=== PATIENT | female | born 1945 | race Caucasian/White ===

== ENCOUNTER 2018-08-30 07:40 | Observation (INO) ==
[2018-08-30] MEDS ORDERED: Ipratropium/Albuterol Neb 3 ML IH ONE ×3 (08:02→08:21)
[2018-08-30] MEDS ORDERED: methylPREDNISolone 125 MG/2 ML VIAL IVP ONE (08:21)
--- NOTE | 2018-08-30 08:30 | Emergency Department Note ---
Disposition Clinical Impression: COPD (chronic obstructive pulmonary disease) Qualifiers: COPD type: unspecified COPD Qualified Code(s): J44.9 - Chronic obstructive pulmonary disease, unspecified A-fib Qualifiers: Atrial fibrillation type: paroxysmal Qualified Code(s): I48.0 - Paroxysmal atrial fibrillation CHF exacerbation Qualifiers: Heart failure type: unspecified Qualified Code(s): I50.9 - Heart failure, unspecified Disposition: Admitted As Inpatient Condition: Fair Referrals: NONE,PCP [Non-Partnered Physician] - Forms: ED Satisfaction Letter Time of Disposition: 09:54 (admit) SOB HPI - General Chief Complaint: ED Upper Respiratory Infection Stated Complaint: cough, wheezing Time Seen by Provider: 08/30/18 08:10 Source: patient Mode of arrival: private vehicle Limitations: no limitations Nursing Notes Reviewed: Yes Vital Signs Reviewed: Yes - History of Present Illness Patient presents to the ED complaining of cough, wheezing and shortness of breath. Symptoms been going on for 2-3 weeks. She reports a productive cough with yellow sputum. Shortness of breath is only with activity, not at rest. He denies any chest pain or leg swelling. No rhinorrhea, nasal congestion or sore throat. She does report subjective fever and chills. She has recently completed a course of antibiotics for pneumonia but she does not recall the name or how recently she finished it. She has had a few chest x-rays according to her records over the past month that were tracking what appeared to be a left upper lobe pneumonia that was resolving with persistence of a lingular pneumonia seen as recently as August 24 on chest x-ray. She takes spiriva, Symbicort and also an albuterol rescue inhaler which she used this morning that did help some. She has a history of both COPD and asthma along with CHF, CAD, A. fib, diabetes and high blood pressure. - Related Data Home Medications Medication Instructions Recorded Confirmed Furosemide [Lasix] 20 mg PO DAILY 10/12/14 08/30/18 Insulin NPH Hum/Reg Insulin Hm 20 unit SQ BID PRN 10/12/14 08/30/18 [Novolin 70-30 100 Unit/ml Vial] Montelukast Sodium 10 mg PO HS 10/12/14 08/30/18 Potassium Chloride 10 meq PO BID 10/12/14 08/30/18 Diltiazem CD (24hr) [Cardizem CD] 180 mg PO DAILY 04/29/15 08/30/18 Tiotropium [place] [Spiriva 2.5 mg IH DAILY 04/29/15 08/30/18 Respimat] Fluticasone Propionate Nasal 1 spray NS BID 03/11/16 08/30/18 [Flonase] Gabapentin [Neurontin] 800 mg PO BID 03/11/16 08/30/18 Levothyroxine [Synthroid] 88 mcg PO DAILY 03/11/16 08/30/18 Cholecalciferol (Vitamin D3) 50,000 unit PO QWEEK 07/08/16 08/30/18 [Vitamin D3] Clopidogrel [Plavix] 75 mg PO DAILY 07/08/16 08/30/18 Albuterol Neb [Proventil Neb] 2.5 mg IH Q4HR PRN 08/30/18 08/30/18 Albuterol Sulfate [Albuterol 1 puff IH Q6HR PRN 08/30/18 08/30/18 Inhaler] Aspirin [Lo-Dose Aspirin EC] 81 mg PO DAILY 08/30/18 08/30/18 Atorvastatin [Lipitor] 40 mg PO HS 08/30/18 08/30/18 Bisacodyl [Women's Laxative] 5 mg PO DAILY 08/30/18 08/30/18 Budesonide/Formoterol 160/4.5 1 puff IH BIDR 08/30/18 08/30/18 [Symbicort 160/4.5] FLUoxetine HCl [PROzac] 10 mg PO DAILY 08/30/18 08/30/18 Meloxicam [Mobic] 15 mg PO DAILY 08/30/18 08/30/18 Omeprazole [PriLOSEC] 40 mg PO DAILY 08/30/18 08/30/18 Ranitidine HCl [Acid Recruitment Director] 150 mg PO BID 08/30/18 08/30/18 Previous Rx's Medication Instructions Recorded Atenolol [Tenormin] 25 mg PO BID #60 tablet 11/02/14 Docusate [Colace] 100 mg PO BID capsule 07/12/16 Ferrous Sulfate 325 mg PO BIDWM tablet 07/12/16 Allergies Allergy/AdvReac Type Severity Reaction Status Date / Time No Known Allergies Allergy Verified 08/30/18 07:40 Constitutional: Reports: fever (subjective), chills. Denies: weakness, weight change Eyes: Denies: eye pain, eye discharge, vision change ENT ED: Denies: ear pain, throat pain, dental pain, hearing loss, epistaxis, congestion, dysphagia Cardiovascular: Denies: chest pain, palpitations, dyspnea on exertion, edema, syncope Respiratory: Reports: as per HPI, cough, dyspnea, wheezes, sputum production. Denies: hemoptysis, stridor Gastrointestinal: Denies: abdominal pain, nausea, vomiting, diarrhea, constipation, hematemesis, melena, hematochezia Genitourinary: Denies: dysuria, frequency, hematuria, discharge Musculoskeletal: Denies: back pain, neck pain, arthralgia, myalgia Integumentary: Denies: rash, abrasion, lesions Neurological: Denies: headache, weakness, numbness, paresthesias, confusion, abnormal gait, vertigo Psychiatric: Denies: anxiety, depression, suicidal thoughts, homicidal thoughts, auditory hallucinations, visual hallucinations Endocrine: Denies: fatigue Hematological/Lymphatic: Denies: easy bleeding, easy bruising Allergic/Immunologic: Denies: facial swelling, urticaria Past Medical History - Past Medical History Medical history: Reports: arthritis, asthma, atrial fibrillation, cancer, CHF, COPD, coronary artery disease, CVA, diabetes, GERD, hyperlipidemia, hypertension, renal disease, thyroid disease, other Surgical history: Reports: cancer surgery (Tracheal), cataract, colectomy (PEG tube and removal), hip replacement (Right), sinus surgery, thyroidectomy, other (Bronchoscopy and biopsy, PEG tube and removal) Psychiatric history: Reports: anxiety, depression RESTAURANT DISTRICT MANAGER history: Reports: no RESTAURANT DISTRICT MANAGER history, bilateral tubal ligation - Social History Smoking Status: Former smoker Smokeless Tobacco Status: No Alcohol use: Reports: none Drug use: Reports: none Physical Exam - General Limitations: no limitations General appearance: alert, in no apparent distress - Head Head exam: atraumatic, normocephalic, normal inspection - Eye Eye exam: Present: normal appearance, PERRL, EOMI - ENT ENT exam: normal exam, normal oropharynx, mucous membranes moist, TM's normal bilaterally, normal external ear exam - Neck Neck exam: Present: normal inspection, full ROM, trachea midline. Absent: lymphadenopathy - Chest Chest inspection: Present: normal inspection, symmetric chest wall rise - Respiratory Respiratory exam: Present: wheezes (diffuse), prolonged expiratory phase - Cardiovascular Cardiovascular exam: Present: regular rate, normal rhythm, normal heart sounds - Abdominal Exam Abdominal exam: Present: soft, Non-Tender. Absent: tenderness, distention, guarding, rebound, rigidity - Extremities Exam Extremities exam: Present: normal inspection, full ROM, pedal edema (trace bilaterally at ankles). Absent: tenderness - Back Exam Back exam: Present: normal inspection, full ROM. Absent: tenderness - Neurological Exam Neurological exam: Present: alert, oriented X3 - Psychiatric Psychiatric exam: Present: normal affect, normal mood - Skin Skin exam: Present: warm, dry, intact, normal color Course Course Narrative: Patient presents to the ED with a few weeks of wheezing, productive cough and shortness of breath with activity with recent completion of antibiotics for a left upper lobe and lingular pneumonia. On arrival she is afebrile and hemodynamically stable but with an increased work of breathing and diffuse wheezing. Will give nebulizer treatments and steroids. Will obtain chest x- ray, EKG and lab work. - Reevaluation(s) Reevaluation #1: Per patient's pharmacy she was prescribed a course of prednisone on August 16 and Levaquin on August 17. Chest x-ray shows increasing pulmonary edema compared to prior with no mention of residual pneumonia. EKG shows A. fib with occasional PVCs at a rate of 131. Patient has been tachycardic anywhere from the 90s to 140s since arrival. She is currently in A. fib which appears to be paroxysmal according to her history and last EKG from 2016 showed an normal sinus rhythm. She has not yet taken any of her daily medications which includes 20 mg of Lasix and 180 of Cardizem. Lab work reveals a normal white count, normal troponin and normal lactic acid. BNP however is elevated at 994. Given a dose of IV Lasix in addition to a small bolus of IV Cardizem. Discussed with patient and family the need for admission for further treatment and there were in agreement. I spoken to the hospitalist on duty, Dr. Garcia, who has accepted the patient. Time: 09:53 Vital Signs Temperature 98.4 F 08/30/18 07:42 Pulse Rate 87 08/30/18 07:42 Respiratory Rate 20 08/30/18 07:42 Blood Pressure 127/97 08/30/18 07:42 O2 Sat by Pulse Oximetry 96 08/30/18 07:42 Temperature 98.4 F 08/30/18 07:42 Pulse Rate 121 08/30/18 09:37 Respiratory Rate 24 08/30/18 09:37 Blood Pressure 151/113 08/30/18 09:37 O2 Sat by Pulse Oximetry 96 08/30/18 09:37 Oxygen Delivery Oxygen Delivery Room Air Shortness of Breath/Dyspnea - Differential Diagnosis Likely: acute exacerbation of chronic obstructive airways disease, congestive heart failure, pneumonia - Medical Records Medical records reviewed: Yes I reviewed the patient's medical records. - Lab Data Lab results reviewed: Yes I reviewed the patient's lab results. Result diagrams: 08/30/18 08:38 08/30/18 08:38 Lab Results 08/30/18 08/30/18 08/30/18 Range/Units 08:38 08:38 08:38 WBC 11.0 (4.3-11.1) K/mcL RBC 4.76 (3.82-4.97) M/mcL Hgb 12.8 (11.5-15.4) g/dL Hct 39.6 (35.3-44.9) % MCV 83.2 (83.0-100.0) fL MCH 26.9 L (28.0-33.3) pg MCHC 32.3 (31.6-35.5) g/dL RDW 14.9 H (11.5-14.5) % Plt Count 265 (140-400) K/mcL MPV 10.0 (9.4-12.4) fL Immature Gran % 0.3 (0-4) % Seg Neutrophils % 74.4 % Lymphocytes % 13.3 % Monocytes % 11.0 % Eosinophils % 0.7 % Basophils % 0.3 % Neutrophils # 8.2 (1.6-8.9) K/mcL Lymphocytes # 1.5 (0.6-4.6) K/mcL Monocytes # 1.2 (0.0-1.3) K/mcL Eosinophils # 0.1 (0.0-0.6) K/mcL Basophils # 0.0 (0.0-0.2) K/mcL Sodium 139 (136-145) mEq/L Potassium 3.9 (3.5-5.1) mEq/L Chloride 104 (98-107) mEq/L Carbon Dioxide 27 (23-29) mEq/L BUN 11 (8-23) mg/dL Creatinine 0.89 (0.60-1.20) mg/dL Est GFR ( Amer) > 60 (> 60) Est GFR (Non-Af Amer) > 60 (> 60) BUN/Creatinine Ratio 12 (6-26) Glucose 133 H (70-105) mg/dL Calculated Osmolality 289 (280-300) Lactic Acid 1.1 (0.5-2.2) mmol/L Calcium 8.8 (8.6-10.3) mg/dL Troponin I < 0.03 (< 0.04) ng/mL B-Natriuretic Peptide (Less than 100) pg/mL 08/30/18 Range/Units 08:38 WBC (4.3-11.1) K/mcL RBC (3.82-4.97) M/mcL Hgb (11.5-15.4) g/dL Hct (35.3-44.9) % MCV (83.0-100.0) fL MCH (28.0-33.3) pg MCHC (31.6-35.5) g/dL RDW (11.5-14.5) % Plt Count (140-400) K/mcL MPV (9.4-12.4) fL Immature Gran % (0-4) % Seg Neutrophils % % Lymphocytes % % Monocytes % % Eosinophils % % Basophils % % Neutrophils # (1.6-8.9) K/mcL Lymphocytes # (0.6-4.6) K/mcL Monocytes # (0.0-1.3) K/mcL Eosinophils # (0.0-0.6) K/mcL Basophils # (0.0-0.2) K/mcL Sodium (136-145) mEq/L Potassium (3.5-5.1) mEq/L Chloride (98-107) mEq/L Carbon Dioxide (23-29) mEq/L BUN (8-23) mg/dL Creatinine (0.60-1.20) mg/dL Est GFR ( Amer) (> 60) Est GFR (Non-Af Amer) (> 60) BUN/Creatinine Ratio (6-26) Glucose (70-105) mg/dL Calculated Osmolality (280-300) Lactic Acid (0.5-2.2) mmol/L Calcium (8.6-10.3) mg/dL Troponin I (< 0.04) ng/mL B-Natriuretic Peptide 994 H (Less than 100) pg/mL - Radiology Data Radiology results reviewed: Yes I reviewed the patient's radiology results. ITS Impressions Chest X-Ray 08/30/18 08:22 IMPRESSION: 1. Increasing pulmonary edema. D/ : / 08/30/2018 09:01:29 Keny Chun MD / [facility] Interpreting Provider: Keny Chun MD - EKG Data EKG attestation: Yes I reviewed and interpreted this EKG. Rate: Reports: tachycardia Rhythm: Reports: A.Fib, PVC's [place]/QRS: Reports: normal Interpretation: Reports: no acute changes
[2018-08-30 08:52] LABS: Basophils % 0.3 %; Eosinophils # 0.1 K/mcL (0.0-0.6); Eosinophils % 0.7 %; Hematocrit 39.6 % (35.3-44.9); Hemoglobin 12.8 g/dL (11.5-15.4); Immature Granulocytes % 0.3 % (0-4); Lymphocytes # 1.5 K/mcL (0.6-4.6); Lymphocytes % 13.3 %; Mean Corpuscular HGB Conc 32.3 g/dL (31.6-35.5); Mean Corpuscular Hemoglobin 26.9 pg (28.0-33.3); Mean Corpuscular Volume 83.2 fL (83.0-100.0); Monocytes # 1.2 K/mcL (0.0-1.3); Neutrophils # 8.2 K/mcL (1.6-8.9); Platelet Count 265 K/mcL (140-400); Red Blood Count 4.76 M/mcL (3.82-4.97); Red Cell Distribution Width 14.9 % (11.5-14.5); Segmented Neutrophils % 74.4 %
[2018-08-30 09:07] LABS: BUN/Creatinine Ratio 12 (6-26); Blood Urea Nitrogen 11 mg/dL (8-23); Calcium 8.8 mg/dL (8.6-10.3); Carbon Dioxide 27 mEq/L (23-29); Chloride 104 mEq/L (98-107); Glucose 133 mg/dL (70-105); Osmolality,Calculated 289 (280-300); Potassium 3.9 mEq/L (3.5-5.1); Sodium 139 mEq/L (136-145); eGFR For African Americans > 60 (> 60); eGFR For Non-African Americans > 60 (> 60)
[2018-08-30 09:08] LABS: Troponin I < 0.03 ng/mL (< 0.04)
[2018-08-30] MEDS ORDERED: Furosemide 20 MG/2 ML VIAL IVP ONE (09:42)
[2018-08-30] MEDS ORDERED: Naloxone 0.4 MG/ML INJ IVP PRN ×2 (09:57→12:25)
[2018-08-30] MEDS ORDERED: *HR* Dextrose 50 % in Water (Syg) 50 ML SYRINGE IVP PRN ×2 (10:08→12:25)
[2018-08-30] MEDS ORDERED: Dextrose Gel 15 GM/37.5 ML TUBE PO PRN ×4 (10:08→12:25)
[2018-08-30] MEDS ORDERED: D5% in Water 1,000 ML IVC PRN ×2 (10:08→12:25)
[2018-08-30] MEDS ORDERED: Insulin LISPRO 300 UNITS/3 ML VIAL SQ SCH ×2 (11:30→21:00)
[2018-08-30] MEDS ORDERED: Diltiazem CD (24hr) 180 MG CAPSULE PO SCH (11:45)
[2018-08-30] MEDS ORDERED: Insulin NPH/REG 70/30 100 UNIT/ML (x5UNIT) SQ PRN (12:25)
[2018-08-30] MEDS ORDERED: Albuterol 2.5 MG/3 ML NEBULIZER IH PRN (12:25)
--- NOTE | 2018-08-30 12:38 | Electrocardiograph Report ---
[place] [id number] Test Date: 2018-08-30 Pat Name: Palak Kline Department: EDP-12 Room: [facility] Gender: F Upper Cutter Machine: : 1945 Requested By: Haylee Diaz Order Number: [id number] Reading MD: Radha Norris Measurements Intervals [place] Rate: 131 P: ME: QRS: -69 QRSD: 93 T: -17 QT: 340 QTc: 465 Interpretive Statements Atrial fibrillation/flutter Inferior infarct, age indeterminate Electronically Signed On 08-30-2018 12:37:21 EDT by Radha Norris
[2018-08-30] MEDS: Budesonide/Formoterol 160/4.5 1 PUFF INH IH SCH ×2 (12:52→21:50)
[2018-08-30] MEDS: FLUoxetine HCl 10 MG CAPSULE PO SCH (14:03)
[2018-08-30] MEDS: Aspirin Enteric Coated 81 MG Tablet PO SCH (14:03)
[2018-08-30] MEDS ORDERED: *HR* Metoprolol 5 MG/5 ML VIAL IVP ONE (14:14)
[2018-08-30] MEDS ORDERED: *HR* Digoxin 0.5 MG/2 ML AMPUL IVP ONE (14:14)
[2018-08-30] MEDS: Insulin LISPRO 300 UNITS/3 ML VIAL SQ SCH ×2 (16:45→21:22)
[2018-08-30] MEDS: Gabapentin 400 MG CAPSULE PO SCH (21:22)
[2018-08-31] MEDS: Aspirin Enteric Coated 81 MG Tablet PO SCH (08:08)
[2018-08-31] MEDS: Diltiazem CD (24hr) 180 MG CAPSULE PO SCH (08:09)
[2018-08-31] MEDS: Famotidine 20 MG TABLET PO SCH (08:09)
[2018-08-31] MEDS: Gabapentin 400 MG CAPSULE PO SCH ×2 (08:09→21:41)
[2018-08-31] MEDS: FLUoxetine HCl 10 MG CAPSULE PO SCH (08:10)
[2018-08-31] MEDS: Insulin LISPRO 300 UNITS/3 ML VIAL SQ SCH ×4 (08:11→21:41)
[2018-08-31] MEDS: Fluticasone Propionate Nasal 50 MCG/SPRAY BOTTLE NS SCH ×3 (08:11→21:44)
[2018-08-31] MEDS ORDERED: Diltiazem CD (24hr) 120 MG CAPSULE PO SCH (09:00)
--- NOTE | 2018-08-31 09:17 | Internal Med History&Physical ---
Date of Encounter: 08/31/18 Time of Encounter: 08:50 Assessment and Plan (1) Diastolic CHF Current visit: No Status: Chronic She will be given IV Lasix and higher dose beta fidelina. Labs will be done in a.m. Qualifiers: Qualified Code(s): I50.32 - Chronic diastolic (congestive) heart failure (2) A-fib Current visit: Yes Status: Chronic Rapid ventricular response noted in emergency room. Additional beta fidelina will be given. Lanoxin was given to slow ventricular rate which has now returned to acceptable range. Continue aspirin and Plavix. Recommend consideration for OAC Qualifiers: Atrial fibrillation type: paroxysmal Qualified Code(s): I48.0 - Paroxysmal atrial fibrillation (3) Hypothyroidism Current visit: Yes Status: Chronic Check TSH in a.m. Qualifiers: Hypothyroidism type: unspecified Qualified Code(s): E03.9 - Hypothyroidism, unspecified (4) Hypertension Current visit: No Status: Chronic Increase atenolol. Continue diltiazem. Qualifiers: Hypertension type: essential hypertension Qualified Code(s): I10 - Essentia l (primary) hypertension Internal Medicine - H&P: HPI Chief complaint: Dyspnea Admitted From: Emergency Dept Plans for Post Hospital Care: Home History of present illness: Ms. Kline is a 73 year old female who came to emergency room stating she had dyspnea onset approximately 2 weeks earlier. She states she was diagnosed with pneumonia and given antibiotics and other interventions. She initially improved but then her dyspnea worsened. She reports cough productive of yellow sputum and sensation of chills. She came to emergency room morning of admission was felt to have exacerbations of COPD and CHF. She was admitted to [facility] floor for ongoing care needs. Cardiovascular history is significant for hypertension and chronic atrial fibrillation. She denies MT DVT or pulmonary embolus. Echocardiogram on 07/09/2016 showed LVEF of 60%. No significant valvular abnormalities were seen. The interventricular septum and posterior wall thickness measurements were 1.30 and 1.00 cm respectively. There was LAE at 4.20 cm. E/A ratio was 0.9. She is on aspirin and Plavix. She does not know why she is not taking oral anticoagulant. Respiratory history significant for having smoked from age [age] never up to one pack per day. She claims she has been diagnosed with COPD and asthma but does not recall having PFTs. She does not use home oxygen. She states her dyspnea has improved at the present time but she is not back to her baseline. Past Med Surg Social Fam HX - Past Medical History Medical history: arthritis, asthma, atrial fibrillation, cancer, CHF, COPD, coronary artery disease, CVA, diabetes, GERD, hyperlipidemia, hypertension, renal disease, thyroid disease, other Additional medical history: hiatial hernia,memory loss, Psychiatric history: anxiety, depression - Past Surgical History Surgical History: cancer surgery (Tracheal), cataract, colectomy (PEG tube and removal), hip replacement (Right), sinus surgery, thyroidectomy, other (Bronchoscopy and biopsy, PEG tube and removal) Additional surgical history: peg tube insertion,tubal,nasal,bowl resection - Social History Smoking Status: Former smoker Smokeless Tobacco Status: No Alcohol use: none Drug use: none - Family History Mother Living Status: Hx Family Cardiac Disorders: Yes (HTN) Hx Family Endocrine Disorder: Yes (DM) Brother Adopted: No Family Member Ethnicity: Non- Living Status: Hx Family Cardiac Disorders: Yes Internal Medicine - H&P: Meds Furosemide [Lasix] 20 mg PO DAILY 10/12/14 [History] Insulin NPH Hum/Reg Insulin Hm [Novolin 70-30 100 Unit/ml Vial] 20 unit SQ BID PRN 10/12/14 [History] Montelukast Sodium 10 mg PO HS 10/12/14 [History] Potassium Chloride 10 meq PO BID 10/12/14 [History] Atenolol [Tenormin] 25 mg PO BID #60 tablet 11/02/14 [Rx] Diltiazem CD (24hr) [Cardizem CD] 180 mg PO DAILY 04/29/15 [History] Tiotropium [place] [Spiriva Respimat] 2.5 mg IH DAILY 04/29/15 [History] Fluticasone Propionate Nasal [Flonase] 1 spray NS BID 03/11/16 [History] Gabapentin [Neurontin] 800 mg PO BID 03/11/16 [History] Levothyroxine [Synthroid] 88 mcg PO DAILY 03/11/16 [History] Cholecalciferol (Vitamin D3) [Vitamin D3] 50,000 unit PO QWEEK 07/08/16 [History] Clopidogrel [Plavix] 75 mg PO DAILY 07/08/16 [History] Docusate [Colace] 100 mg PO BID capsule 07/12/16 [Rx] Ferrous Sulfate 325 mg PO BIDWM tablet 07/12/16 [Rx] Albuterol Neb [Proventil Neb] 2.5 mg IH Q4HR PRN 08/30/18 [History] Albuterol Sulfate [Albuterol Inhaler] 1 puff IH Q6HR PRN 08/30/18 [History] Aspirin [Lo-Dose Aspirin EC] 81 mg PO DAILY 08/30/18 [History] Atorvastatin [Lipitor] 40 mg PO HS 08/30/18 [History] Bisacodyl [Women's Laxative] 5 mg PO DAILY 08/30/18 [History] Budesonide/Formoterol 160/4.5 [Symbicort 160/4.5] 1 puff IH BIDR 08/30/18 [History] FLUoxetine HCl [PROzac] 10 mg PO DAILY 08/30/18 [History] Meloxicam [Mobic] 15 mg PO DAILY 08/30/18 [History] Omeprazole [PriLOSEC] 40 mg PO DAILY 08/30/18 [History] Ranitidine HCl [Acid Food Manager] 150 mg PO BID 08/30/18 [History] Allergy/AdvReac Type Severity Reaction Status Date / Time No Known Allergies Allergy Verified 08/30/18 07:40 All Systems PM: A 10-system review of systems was performed and is negative for pertinent findings except as documented above in the HPI. Review of systems: Gen.: She states her weight has been stable for several months Cardiovascular: As per history of present illness Respiratory: As per history of present illness GI: She states she has dysphagia and follows with Dr. Rodriguez at [facility] with anticipated esophageal dilatation procedure in the near future. Available records show she has history of colon cancer and had segmental resection several years ago requiring temporary colostomy which has been reversed. She has GERD diagnosis. She denies other disorders of her liver gallbladder or exocrine pancreas : She denies hematuria dysuria or kidney stones Neurologic: She reports a CVA 1994 left her with slight left arm and leg weakness. She has diabetic peripheral neuropathy. She denies other large distribution strokes or seizures Endocrine: She was diagnosed with DM 2 more than 30 years ago. 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 She states she is cancer free at the present time. She has history of anemia but denies other blood disorders. Psychiatric: She has anxiety and depression. She denies other mental health issues. [place] skeletal: She had right hip fracture with repair 2011. She denies other bone joint or muscle disorders. - Constitutional Vitals: Temp Pulse Resp BP Pulse Ox 97.7 F 93 16 134/89 93 08/31/18 06:58 08/31/18 06:58 08/31/18 06:58 08/31/18 06:58 08/31/18 06:58 Exam: Gen.: She is a well-developed well-nourished female resting comfortably in bed who appears slightly dyspneic HEENT: Head is atraumatic and normocephalic. Eyes: EOMI. There is no scleral icterus. Mouth: Mucosa is moist. Neck: Supple and nontender. There is no thyromegaly or adenopathy noted. Heart: Irregularly irregular without murmurs or gallops Lungs: She has prolonged expiratory phase and mild diffuse wheezing. No inspiratory crackles are heard. Abdomen: She has a well-healed midline abdominal scar. No masses or guarding are noted. Extremities: She has mild DJD changes of her hands. There is no cyanosis edema or clubbing noted. Dorsalis pedis and posterior tibial pulses are trace pal pable bilaterally. Neurologic: Mental status: She is talkative and a fair to good historian. Cranial nerves: Smile is symmetric. Forehead wrinkles bilaterally. Tongue protrudes midline. EOMI. Motor: There is no pronator drift. Cerebellar: Finger to nose is intact bilaterally. Skin: Warm and dry Internal Med - H&P Results - Labs CBC & Chem 7: 08/30/18 08:38 08/30/18 08:38 - Impressions ITS Impressions Chest X-Ray 08/30/18 08:22 IMPRESSION: 1. Increasing pulmonary edema. D/ / 08/30/2018 09:01:29 Keny Chun MD / [facility] Interpreting Provider: Keny Chun MD - VTE Reasons for not Prescribing Prophylaxis: Treatment not Indicated - Low risk for VTE
[2018-08-31] MEDS: Tiotropium 18 MCG inhalation IH SCH (09:22)
[2018-08-31] MEDS: Budesonide/Formoterol 160/4.5 1 PUFF INH IH SCH ×2 (09:22→22:21)
[2018-08-31] MEDS ORDERED: Albuterol 2.5 MG/3 ML NEBULIZER IH PRN (09:43)
[2018-08-31] MEDS ORDERED: *HR* Digoxin 0.25 MG TABLET PO ONE (09:45)
[2018-08-31] MEDS: Furosemide 40 MG/4 ML VIAL IVP SCH (11:42)
[2018-09-01 07:05] LABS: Thyroid Stimulating Hormone 4.971 mcIU/mL (0.340-5.600)
[2018-09-01 07:15] VITALS: BP 133/78
[2018-09-01] MEDS: Insulin LISPRO 300 UNITS/3 ML VIAL SQ SCH (07:54)
--- NOTE | 2018-09-01 08:09 | Discharge Summary ---
- NOTES TO OUTPATIENT PROVIDER Notes to Outpatient Provider: Recommend BMP to be drawn in 1 week given home diuretic dose increased. Consider full anticoagulation for atrial fibrillation. Date of Encounter: 09/01/18 Time of Encounter: 08:06 - Discharge Diagnosis (1) Acute on chronic congestive heart failure with left ventricular diastolic dysfunction Priority: Primary Status: Resolved Comments: Resolved exacerbation. Cardiopulmonary status near baseline. BNP improved from 994 to 330. EF 60% by remote TTE. Patient will be discharged home with increased furosemide dose. Daily weights along with 2L fluid restriction and 2g sodium restriction provided. She is to call PCP with 2lb/d or 5lb/w weight gain. (2) Atrial fibrillation with rapid ventricular response Priority: Secondary Status: Resolved Comments: Patient self-converted to sinus rhythm while admitted. HR averaging in low 60s on increased beta-fidelina regimen. The risks and benefits of full anticoagulation discussed with patient. She will discuss further with her PCP. BMP recommended in 1 week. (3) COPD (chronic obstructive pulmonary disease) Priority: Secondary Status: Chronic Comments: COPD appears near baseline with scattered wheeze on exam. O2 sats mid 90s on RA. Pt states that she feels near baseline. Will continue prior outpatient management and have pt follow-up with PCP next week. Qualifiers: COPD type: unspecified COPD Qualified Code(s): J44.9 - Chronic obstructive pulmonary disease, unspecified (4) Type II diabetes mellitus Priority: Secondary Status: Chronic Comments: Stable and near baseline. Will continue home regimen. Qualifiers: Diabetes mellitus filler leaf cutter long insulin use: with filler leaf cutter long use Diabetes mellitus complication status: without complication Qualified Code(s): E11.9 - Type 2 diabetes mellitus without complications; Z79.4 - long term care pharmacist (current) use of insulin Hospital course: Ms. Kline is a 73 year old female with known diastolic CHF, paroxysmal atrial fibrillation and COPD that presented to ED with 2 week history of increased cough, shortness of breath and wheeze despite home steroid and FQ course. CXR performed revealed considerable pulmonary edema. BNP elevated to 994. Patient was also in atrial fibrillation with RVR. She was admitted and diuresed with IV lasix. Rhythm self-converted to a NSR. Home beta-fidelina and diuretic were increased. Patient was tolerating a diabetic diet and ambulatory, with an oxygen saturation in the mid 90s at time of discharge. Fluid/sodium restrictions with daily weights were discussed. She will discuss full anti-coagulation with her PCP. Discharge discussed with: family - Time Spent with Patient Total time spent providing and/or coordinating discharge services: Time spent: Greater than 30 minutes - Discharge Medications Prescriptions: New Diltiazem CD (24hr) [Cardizem CD] 180 mg PO DAILY cap.er.24h Furosemide [Lasix] 40 mg PO DAILY #30 tablet Atenolol [Tenormin] 50 mg PO BID #60 tablet Continued Diltiazem CD (24hr) [Cardizem CD] 180 mg PO DAILY Tiotropium [place] [Spiriva Respimat] 2.5 mg IH DAILY Clopidogrel [Plavix] 75 mg PO DAILY Cholecalciferol (Vitamin D3) [Vitamin D3] 50,000 unit PO QWEEK Ferrous Sulfate 325 mg PO BIDWM tablet Docusate [Colace] 100 mg PO BID capsule Insulin NPH Hum/Reg Insulin Hm [Novolin 70-30 100 Unit/ml Vial] 20 unit SQ BID PRN PRN Reason: BG >150 Potassium Chloride 10 meq PO BID Montelukast Sodium 10 mg PO HS Fluticasone Propionate Nasal [Flonase] 1 spray NS BID Levothyroxine [Synthroid] 88 mcg PO DAILY Gabapentin [Neurontin] 800 mg PO BID Omeprazole [PriLOSEC] 40 mg PO DAILY Budesonide/Formoterol 160/4.5 [Symbicort 160/4.5] 1 puff IH BIDR Meloxicam [Mobic] 15 mg PO DAILY Albuterol Neb [Proventil Neb] 2.5 mg IH Q4HR PRN PRN Reason: Shortness Of Breath Ranitidine HCl [Acid Partner Marketing Intern] 150 mg PO BID Albuterol Sulfate [Albuterol Inhaler] 1 puff IH Q6HR PRN PRN Reason: Shortness Of Breath Aspirin [Lo-Dose Aspirin EC] 81 mg PO DAILY FLUoxetine HCl [Prozac] 10 mg PO DAILY Bisacodyl [Women's Laxative] 5 mg PO DAILY Atorvastatin [Lipitor] 40 mg PO HS Discontinued Atenolol [Tenormin] 25 mg PO BID #60 tablet Furosemide [Lasix] 20 mg PO DAILY Home Medications: Insulin NPH Hum/Reg Insulin Hm [Novolin 70-30 100 Unit/ml Vial] 20 unit SQ BID PRN 10/12/14 [History] Montelukast Sodium 10 mg PO HS 10/12/14 [History] Potassium Chloride 10 meq PO BID 10/12/14 [History] Diltiazem CD (24hr) [Cardizem CD] 180 mg PO DAILY 04/29/15 [History] Tiotropium [place] [Spiriva Respimat] 2.5 mg IH DAILY 04/29/15 [History] Fluticasone Propionate Nasal [Flonase] 1 spray NS BID 03/11/16 [History] Gabapentin [Neurontin] 800 mg PO BID 03/11/16 [History] Levothyroxine [Synthroid] 88 mcg PO DAILY 03/11/16 [History] Cholecalciferol (Vitamin D3) [Vitamin D3] 50,000 unit PO QWEEK 07/08/16 [History] Clopidogrel [Plavix] 75 mg PO DAILY 07/08/16 [History] Docusate [Colace] 100 mg PO BID capsule 07/12/16 [Rx] Ferrous Sulfate 325 mg PO BIDWM tablet 07/12/16 [Rx] Albuterol Neb [Proventil Neb] 2.5 mg IH Q4HR PRN 08/30/18 [History] Albuterol Sulfate [Albuterol Inhaler] 1 puff IH Q6HR PRN 08/30/18 [History] Aspirin [Lo-Dose Aspirin EC] 81 mg PO DAILY 08/30/18 [History] Atorvastatin [Lipitor] 40 mg PO HS 08/30/18 [History] Bisacodyl [Women's Laxative] 5 mg PO DAILY 08/30/18 [History] Budesonide/Formoterol 160/4.5 [Symbicort 160/4.5] 1 puff IH BIDR 08/30/18 [History] FLUoxetine HCl [Prozac] 10 mg PO DAILY 08/30/18 [History] Meloxicam [Mobic] 15 mg PO DAILY 08/30/18 [History] Omeprazole [PriLOSEC] 40 mg PO DAILY 08/30/18 [History] Ranitidine HCl [Acid Partner Marketing Intern] 150 mg PO BID 08/30/18 [History] Atenolol [Tenormin] 50 mg PO BID #60 tablet 09/01/18 [Rx] Diltiazem CD (24hr) [Cardizem CD] 180 mg PO DAILY cap.er.24h 09/01/18 [Rx] Furosemide [Lasix] 40 mg PO DAILY #30 tablet 09/01/18 [Rx] Allergies/Adverse Reactions: Allergy/AdvReac Type Severity Reaction Status Date / Time No Known Allergies Allergy Verified 08/30/18 07:40 Date of admission: 08/30/18 11:46 Primary care physician: Elly Laguna Consults: 08/30/18 13:03 Consult to Printmaker [CONS] Routine Reason for SW Consult: Discharge planning. Pt may have services from [facility]. Discharging clinician: Marcos Boone Anticipated date of discharge: 09/01/18 - Constitutional Vitals: Temp Pulse Resp BP Pulse Ox 97.4 F L 60 16 133/78 96 09/01/18 07:12 09/01/18 07:12 09/01/18 07:12 09/01/18 07:12 09/01/18 07:12 Exam: Gen: Lying in bed, NAD HEENT: NC, AT Neck: Trachea midline, no mass Pulm: No respiratory distress, scattered expiratory wheeze throughout with good air movement, no crackles CV: Normal S1 and S2, RRR Abdomen: Soft, ND, NT Ext: No C/C/E Neuro: No appreciable motor/sensor deficits Skin: Warm and dry, no rash Psych: A&Ox3 - Patient Status Disposition: Home, Self-Care Condition: Fair Functional capacity at discharge: independent ambulation Overall status at discharge: patient is progressing back to baseline - Discharge Instructions Instructions: Heart Failure (DC), Atrial Fibrillation (DC), Hypothyroidism (DC), Chronic Obstructive Pulmonary Disease (DC) Follow Up With: Elly Laguna CNP [Primary Care Provider] - 09/18/18 4:45 pm - Diet and Activity Activity: as per physical therapy Diet: advance to your usual diet - VTE Reasons for not Prescribing Prophylaxis: Treatment not Indicated - Low risk for VTE
[2018-09-01] MEDS: Gabapentin 400 MG CAPSULE PO SCH (08:11)
[2018-09-01] MEDS: Famotidine 20 MG TABLET PO SCH (08:12)
[2018-09-01] MEDS: Aspirin Enteric Coated 81 MG Tablet PO SCH (08:12)
[2018-09-01] MEDS: Diltiazem CD (24hr) 180 MG CAPSULE PO SCH (08:12)
[2018-09-01] MEDS: Furosemide 40 MG/4 ML VIAL IVP SCH (08:12)
[2018-09-01] MEDS: Fluticasone Propionate Nasal 50 MCG/SPRAY BOTTLE NS SCH (08:12)
[2018-09-01] MEDS: FLUoxetine HCl 10 MG CAPSULE PO SCH (08:12)
[2018-09-01] MEDS ORDERED: *HR* Dextrose 50 % in Water (Vial) 50 ML VIAL IVP PRN (08:30)
[2018-09-01] MEDS: Budesonide/Formoterol 160/4.5 1 PUFF INH IH SCH (09:23)
[2018-09-01] MEDS: Tiotropium 18 MCG inhalation IH SCH (09:23)
== END 2018-09-01 09:00 | disposition home or self-care (01) ==
LOC: EMEROOPIK 07:40 → INPPIK 07:40
PROVIDERS: ADMIT Internal Medicine; ATTEND Internal Medicine

== ENCOUNTER 2018-09-30 12:22 | Inpatient (IN) ==
[2018-09-30] MEDS ORDERED: methylPREDNISolone 125 MG/2 ML VIAL IVP ONE ×2 (13:01→15:14)
[2018-09-30] MEDS ORDERED: Ipratropium/Albuterol Neb 3 ML IH ONE (13:01)
--- NOTE | 2018-09-30 13:04 | Emergency Department Note ---
Disposition Clinical Impression: Acute exacerbation of chronic obstructive airways disease, Hypoxia Disposition: Admitted As Inpatient Condition: Fair Referrals: Garth Lee, DEEP FAT FRY COOK [Primary Care Provider] - Forms: ED Satisfaction Letter Time of Disposition: 14:17 SOB HPI - General Chief Complaint: ED Shortness of Breath/Dyspnea Stated Complaint: SHORTNESS OF BREATH WORSE 2 DAYS Time Seen by Provider: 09/30/18 12:56 Source: patient Mode of arrival: private vehicle Limitations: no limitations Nursing Notes Reviewed: Yes Vital Signs Reviewed: Yes - History of Present Illness Pt Subjective Complaint: shortness of breath Onset (ago): day(s) (Several days) Severity: severe Consistency/Duration: constant, gradually worsening Improves with: nothing (Even her home aerosol treatments did not help.) Worsens with: exertion Known history of: COPD, congestive heart failure Associated symptoms: Reports: cough, wheezing, sputum production Treatment prior to arrival: bronchodilator Cough present: Yes Cough Description: Productive Cough Frequency: Persistent Sputum production: Yes Sputum Amount: Moderate Sputum Color: Yellow, Green, Blood Streaked - Related Data Home oxygen amount: none Home Medications Medication Instructions Recorded Confirmed Insulin NPH Hum/Reg Insulin Hm 20 unit SQ BID PRN 10/12/14 09/30/18 [Novolin 70-30 100 Unit/ml Vial] Montelukast Sodium 10 mg PO HS 10/12/14 09/30/18 Potassium Chloride 10 meq PO BID 10/12/14 09/30/18 Tiotropium [place] [Spiriva 2.5 mg IH DAILY 04/29/15 09/30/18 Respimat] Fluticasone Propionate Nasal 1 spray NS BID 03/11/16 09/30/18 [Flonase] Gabapentin [Neurontin] 800 mg PO BID 03/11/16 09/30/18 Levothyroxine [Synthroid] 88 mcg PO DAILY 03/11/16 09/30/18 Cholecalciferol (Vitamin D3) 50,000 unit PO QWEEK 07/08/16 09/30/18 [Vitamin D3] Clopidogrel [Plavix] 75 mg PO DAILY 07/08/16 09/30/18 Albuterol Neb [Proventil Neb] 2.5 mg IH Q4HR PRN 08/30/18 09/30/18 Albuterol Sulfate [Proventil 1 puff IH Q6HR PRN 08/30/18 09/30/18 Inhaler] Aspirin [Lo-Dose Aspirin EC] 81 mg PO DAILY 08/30/18 09/30/18 Atorvastatin [Lipitor] 40 mg PO HS 08/30/18 09/30/18 Bisacodyl [Women's Laxative] 5 mg PO DAILY 08/30/18 09/30/18 Budesonide/Formoterol 160/4.5 1 puff IH BIDR 08/30/18 09/30/18 [Symbicort 160/4.5] FLUoxetine HCl [Prozac] 10 mg PO DAILY 08/30/18 09/30/18 Meloxicam [Mobic] 15 mg PO DAILY 08/30/18 09/30/18 Omeprazole [PriLOSEC] 40 mg PO DAILY 08/30/18 09/30/18 Ranitidine HCl [Acid Bolt Sorter] 150 mg PO BID 08/30/18 09/30/18 Previous Rx's Medication Instructions Recorded Docusate [Colace] 100 mg PO BID capsule 07/12/16 Ferrous Sulfate 325 mg PO BIDWM tablet 07/12/16 Atenolol [Tenormin] 50 mg PO BID #60 tablet 09/01/18 Diltiazem CD (24hr) [Cardizem CD] 180 mg PO DAILY cap.er.24h 09/01/18 Allergies Allergy/AdvReac Type Severity Reaction Status Date / Time No Known Allergies Allergy Verified 08/30/18 07:40 All systems ED: reviewed and negative except as stated. Constitutional: Denies: fever, chills ENT ED: Denies: ear pain, throat pain, congestion Cardiovascular: Reports: dyspnea on exertion. Denies: chest pain, palpitations, edema Respiratory: Reports: cough, dyspnea, wheezes Gastrointestinal: Denies: abdominal pain, nausea, vomiting, diarrhea Integumentary: Denies: rash Neurological: Denies: headache Past Medical History - Past Medical History Attestation: Yes The following information was validated with the patient. Source: patient, old records reviewed, nursing notes reviewed Medical history: Reports: arthritis, asthma, atrial fibrillation, cancer, CHF, COPD, coronary artery disease, CVA, diabetes, GERD, hyperlipidemia, hypertension, renal disease, thyroid disease, other Surgical history: Reports: cancer surgery (Tracheal), cataract, colectomy (PEG tube and removal), hip replacement (Right), sinus surgery, thyroidectomy, other (Bronchoscopy and biopsy, PEG tube and removal) Psychiatric history: Reports: anxiety, depression MD PHYSICIAN DERMATOLOGIST history: Reports: no MD PHYSICIAN DERMATOLOGIST history, bilateral tubal ligation - Social History Smoking Status: Former smoker Smokeless Tobacco Status: No Alcohol use: Reports: none Drug use: Reports: none Physical Exam - General Limitations: no limitations General appearance: alert, other (Frequent cough and audible wheezing) - Head Head exam: atraumatic, normocephalic, normal inspection - Eye Eye exam: Present: normal appearance, PERRL, EOMI. Absent: scleral icterus, conjunctival injection - ENT ENT exam: normal exam, normal oropharynx, mucous membranes moist, normal external ear exam - Neck Neck exam: Present: normal inspection, full ROM, trachea midline. Absent: meningismus - Chest Chest inspection: Present: normal inspection, symmetric chest wall rise. Absent: tenderness - Respiratory Respiratory exam: Present: wheezes, prolonged expiratory phase, other (Tachypnea and frequent cough) - Cardiovascular Cardiovascular exam: Present: regular rate, irregular rhythm, normal heart sounds - Abdominal Exam Abdominal exam: Present: soft, Non-Tender, normal bowel sounds - Extremities Exam Extremities exam: Present: normal inspection. Absent: tenderness, pedal edema, calf tenderness - Neurological Exam Neurological exam: Present: alert, oriented X3 - Psychiatric Psychiatric exam: Present: normal affect, normal mood - Skin Skin exam: Present: warm, dry. Absent: rash Course Course Narrative: Patient presents with shortness of breath progressively worsening over the past couple of days associated with a cough is now productive of yellow and green sputum that is occasionally blood-streaked. She is tachypneic and there is wheezing. I do not hear rales or see edema in her legs. I suspect that this is a COPD exacerbation. We will do a shortness of breath workup on the patient. Disposition will be based on diagnostic results and reevaluation. - Reevaluation(s) Reevaluation #1: Labs look good. Chest x-ray is clear. However patient's O2 sat does dip below 90 at times at rest. She is not on oxygen at home. This is a COPD exacerbation seems to be precipitated by bronchitis and requiring oxygen treatment. She will need to be admitted to the hospital. I have already spoken with the hospitalist, Dr. Henry, and he is accepting the patient for admission. Time: 14:17 - Consultations Consultation #1: Dr. Henry, hospitalist - I discussed the case with the hospice. He accepted the patient for admission Time: 14:15 Vital Signs Temperature 97.9 F 09/30/18 12:28 Pulse Rate 67 09/30/18 12:28 Respiratory Rate 20 09/30/18 12:28 Blood Pressure 110/76 09/30/18 12:28 O2 Sat by Pulse Oximetry 94 09/30/18 12:28 Temperature 97.9 F 09/30/18 12:28 Pulse Rate 108 09/30/18 14:12 Respiratory Rate 22 09/30/18 14:12 Blood Pressure 131/106 09/30/18 14:12 O2 Sat by Pulse Oximetry 91 09/30/18 14:12 Oxygen Delivery Oxygen Delivery Nasal Cannula Shortness of Breath/Dyspnea - Medical Records Medical records reviewed: Yes I reviewed the patient's medical records. - Lab Data Lab results reviewed: Yes I reviewed the patient's lab results. Result diagrams: 09/30/18 13:20 09/30/18 13:20 Lab Results 09/30/18 09/30/18 09/30/18 Range/Units 13:20 13:20 13:20 WBC 9.7 (4.3-11.1) K/mcL RBC 5.31 H (3.82-4.97) M/mcL Hgb 14.0 (11.5-15.4) g/dL Hct 43.4 (35.3-44.9) % MCV 81.7 L (83.0-100.0) fL MCH 26.4 L (28.0-33.3) pg MCHC 32.3 (31.6-35.5) g/dL RDW 14.8 H (11.5-14.5) % Plt Count 315 (140-400) K/mcL MPV 9.5 (9.4-12.4) fL Immature Gran % 0.4 (0-4) % Seg Neutrophils % 72.7 % Lymphocytes % 14.8 % Monocytes % 11.1 % Eosinophils % 0.6 % Basophils % 0.4 % Neutrophils # 7.0 (1.6-8.9) K/mcL Lymphocytes # 1.4 (0.6-4.6) K/mcL Monocytes # 1.1 (0.0-1.3) K/mcL Eosinophils # 0.1 (0.0-0.6) K/mcL Basophils # 0.0 (0.0-0.2) K/mcL PT 14.3 H (9.4-12.1) Seconds INR 1.3 APTT 35.4 (26.0-36.0) Seconds D-Dimer 385 (0-500) ng/mLFEU Sodium 136 (136-145) mEq/L Potassium 3.4 L (3.5-5.1) mEq/L Chloride 102 (98-107) mEq/L Carbon Dioxide 24 (23-29) mEq/L BUN 9 (8-23) mg/dL Creatinine 0.99 (0.60-1.20) mg/dL Est GFR ( Amer) > 60 (> 60) Est GFR (Non-Af Amer) 55 L (> 60) BUN/Creatinine Ratio 9 (6-26) Glucose 160 H (70-105) mg/dL Calculated Osmolality 284 (280-300) Lactic Acid (0.5-2.2) mmol/L Calcium 9.3 (8.6-10.3) mg/dL Troponin I < 0.03 (< 0.04) ng/mL B-Natriuretic Peptide (Less than 100) pg/mL 09/30/18 09/30/18 Range/Units 13:20 13:20 WBC (4.3-11.1) K/mcL RBC (3.82-4.97) M/mcL Hgb (11.5-15.4) g/dL Hct (35.3-44.9) % MCV (83.0-100.0) fL MCH (28.0-33.3) pg MCHC (31.6-35.5) g/dL RDW (11.5-14.5) % Plt Count (140-400) K/mcL MPV (9.4-12.4) fL Immature Gran % (0-4) % Seg Neutrophils % % Lymphocytes % % Monocytes % % Eosinophils % % Basophils % % Neutrophils # (1.6-8.9) K/mcL Lymphocytes # (0.6-4.6) K/mcL Monocytes # (0.0-1.3) K/mcL Eosinophils # (0.0-0.6) K/mcL Basophils # (0.0-0.2) K/mcL PT (9.4-12.1) Seconds INR APTT (26.0-36.0) Seconds D-Dimer (0-500) ng/mLFEU Sodium (136-145) mEq/L Potassium (3.5-5.1) mEq/L Chloride (98-107) mEq/L Carbon Dioxide (23-29) mEq/L BUN (8-23) mg/dL Creatinine (0.60-1.20) mg/dL Est GFR ( Amer) (> 60) Est GFR (Non-Af Amer) (> 60) BUN/Creatinine Ratio (6-26) Glucose (70-105) mg/dL Calculated Osmolality (280-300) Lactic Acid 1.4 (0.5-2.2) mmol/L Calcium (8.6-10.3) mg/dL Troponin I (< 0.04) ng/mL B-Natriuretic Peptide 429 H (Less than 100) pg/mL - Radiology Data Radiology results reviewed: Yes I reviewed the patient's radiology results. - EKG Data EKG attestation: Yes I reviewed and interpreted this EKG. EKG results narrative: Twelve-lead EKG performed at 12:46 PM. Ordered, viewed and turbid by ED physician showed atrial fibrillation at a rate 102. Normal axis. Good hour progression across precordium. No obvious acute ischemic changes. Baseline is erratic but no significant issues.
[2018-09-30 13:33] LABS: Basophils % 0.4 %; Eosinophils # 0.1 K/mcL (0.0-0.6); Eosinophils % 0.6 %; Hematocrit 43.4 % (35.3-44.9); Immature Granulocytes % 0.4 % (0-4); Lymphocytes # 1.4 K/mcL (0.6-4.6); Lymphocytes % 14.8 %; Mean Corpuscular HGB Conc 32.3 g/dL (31.6-35.5); Mean Corpuscular Hemoglobin 26.4 pg (28.0-33.3); Mean Corpuscular Volume 81.7 fL (83.0-100.0); Mean Platelet Volume 9.5 fL (9.4-12.4); Monocytes # 1.1 K/mcL (0.0-1.3); Monocytes % 11.1 %; Platelet Count 315 K/mcL (140-400); Red Blood Count 5.31 M/mcL (3.82-4.97); Red Cell Distribution Width 14.8 % (11.5-14.5); Segmented Neutrophils % 72.7 %; White Blood Count 9.7 K/mcL (4.3-11.1)
[2018-09-30 13:41] LABS: INR 1.3; Prothrombin Time 14.3 Seconds (9.4-12.1)
[2018-09-30 13:44] LABS: Activated Partial Thrombo Time 35.4 Seconds (26.0-36.0)
[2018-09-30 13:50] LABS: BUN/Creatinine Ratio 9 (6-26); Blood Urea Nitrogen 9 mg/dL (8-23); Calcium 9.3 mg/dL (8.6-10.3); Carbon Dioxide 24 mEq/L (23-29); Chloride 102 mEq/L (98-107); Glucose 160 mg/dL (70-105); Osmolality,Calculated 284 (280-300); Potassium 3.4 mEq/L (3.5-5.1); Sodium 136 mEq/L (136-145); eGFR For African Americans > 60 (> 60); eGFR For Non-African Americans 55 (> 60)
[2018-09-30 13:52] LABS: Troponin I < 0.03 ng/mL (< 0.04)
[2018-09-30] MEDS ORDERED: Insulin NPH/REG 70/30 100 UNIT/ML (x5UNIT) SQ PRN (15:14)
[2018-09-30] MEDS ORDERED: Naloxone 0.4 MG/ML INJ IVP PRN (15:14)
[2018-09-30] MEDS ORDERED: Ipratropium/Albuterol Neb 3 ML IH SCH (16:00)
[2018-09-30] MEDS ORDERED: cefTRIAXone 1,000 MG in Water for inj. (sterile) 20 ML IVPB SCH (16:00)
[2018-09-30] MEDS ORDERED: Azithromycin 500 MG in D5% in Water 250 ML IVPB SCH (16:00)
[2018-09-30] MEDS ORDERED: D5% in Water 1,000 ML IVC PRN (16:31)
[2018-09-30] MEDS ORDERED: *HR* Dextrose 50 % in Water (Syg) 50 ML SYRINGE IVP PRN (16:31)
[2018-09-30] MEDS ORDERED: Dextrose Gel 15 GM/37.5 ML TUBE PO PRN ×2 (16:31)
[2018-09-30] MEDS: 0.9 % Sodium Chloride 1,000 ML IVC SCH (19:32)
[2018-09-30] MEDS: Azithromycin 500 MG in D5% in Water 250 ML IVPB SCH (19:33)
[2018-09-30] MEDS: cefTRIAXone 1,000 MG in Water for inj. (sterile) 10 ML IVPB SCH (19:33)
[2018-09-30] MEDS ORDERED: Diltiazem CD (24hr) 180 MG CAPSULE PO ONE (20:00)
[2018-09-30] MEDS: Gabapentin 400 MG CAPSULE PO SCH (21:08)
[2018-09-30] MEDS: Insulin DETEMIR 100 UNIT/ML X5UNITS SQ SCH (21:08)
[2018-09-30] MEDS: Fluticasone Propionate Nasal 50 MCG/SPRAY BOTTLE NS SCH (21:08)
[2018-09-30] MEDS: Famotidine 20 MG TABLET PO SCH (21:08)
[2018-09-30] MEDS: Insulin LISPRO 300 UNITS/3 ML VIAL SQ SCH (21:08)
[2018-09-30] MEDS: Budesonide/Formoterol 160/4.5 1 PUFF INH IH SCH (21:47)
[2018-09-30] MEDS: Albuterol 2.5 MG/3 ML NEBULIZER AER PRN (21:50)
[2018-10-01] MEDS: Albuterol 2.5 MG/3 ML NEBULIZER AER PRN ×3 (06:18→21:44)
[2018-10-01 06:42] LABS: Hematocrit 39.4 % (35.3-44.9); Hemoglobin 12.8 g/dL (11.5-15.4); Mean Corpuscular HGB Conc 32.5 g/dL (31.6-35.5); Mean Corpuscular Hemoglobin 26.7 pg (28.0-33.3); Mean Corpuscular Volume 82.1 fL (83.0-100.0); Mean Platelet Volume 9.5 fL (9.4-12.4); Platelet Count 287 K/mcL (140-400); Red Cell Distribution Width 14.6 % (11.5-14.5); White Blood Count 8.1 K/mcL (4.3-11.1)
[2018-10-01 07:04] LABS: BUN/Creatinine Ratio 13 (6-26); Blood Urea Nitrogen 12 mg/dL (8-23); Calcium 9.2 mg/dL (8.6-10.3); Carbon Dioxide 23 mEq/L (23-29); Chloride 101 mEq/L (98-107); Glucose 223 mg/dL (70-105); Osmolality,Calculated 285 (280-300); Potassium 3.7 mEq/L (3.5-5.1); Sodium 134 mEq/L (136-145); Troponin I < 0.03 ng/mL (< 0.04); eGFR For African Americans > 60 (> 60); eGFR For Non-African Americans 59 (> 60)
[2018-10-01] MEDS: Famotidine 20 MG TABLET PO SCH ×2 (08:19→20:41)
[2018-10-01] MEDS: Gabapentin 400 MG CAPSULE PO SCH ×2 (08:19→20:41)
[2018-10-01] MEDS: Diltiazem CD (24hr) 180 MG CAPSULE PO SCH (08:19)
[2018-10-01] MEDS: FLUoxetine HCl 10 MG CAPSULE PO SCH (08:19)
[2018-10-01] MEDS: Aspirin Enteric Coated 81 MG Tablet PO SCH (08:19)
[2018-10-01] MEDS: Insulin LISPRO 300 UNITS/3 ML VIAL SQ SCH ×4 (08:20→20:42)
[2018-10-01] MEDS: 0.9 % Sodium Chloride 1,000 ML IVC SCH (08:20)
[2018-10-01] MEDS: Fluticasone Propionate Nasal 50 MCG/SPRAY BOTTLE NS SCH ×2 (08:21→20:41)
[2018-10-01] MEDS: Budesonide/Formoterol 160/4.5 1 PUFF INH IH SCH ×2 (10:30→21:44)
[2018-10-01] MEDS: Tiotropium 18 MCG inhalation IH SCH (10:32)
--- NOTE | 2018-10-01 15:03 | Internal Med History&Physical ---
Date of Encounter: 10/01/18 Time of Encounter: 14:58 Assessment and Plan (1) Bronchitis Current visit: Yes Status: Acute Hopping up blood-tinged sputum continue the azithromycin and Rocephin, white count is normal which is concerning normally a white count be elevated with someone fighting infection (2) Acute exacerbation of chronic obstructive airways disease Current visit: Yes Status: Acute Solu-Medrol help some she like oral steroids despite being a diabetic (3) Dysphagia Current visit: Yes Status: Acute Probably swallowing certain foods will get speech therapy involved his puree diet for now Qualifiers: Dysphagia type: unspecified Qualified Code(s): R13.10 - Dysphagia, unspecified (4) Hypoxia Current visit: Yes Status: Acute Continue the oxygen as needed note that she was on oxygen at home (5) Degenerative disc disease, lumbar Current visit: No Status: Chronic Pain controlled (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 Residual effects of treatment makes her have problems swallowing (7) Diastolic CHF Current visit: No Status: Chronic Stable no cranial crackles in her bases Qualifiers: Qualified Code(s): I50.32 - Chronic diastolic (congestive) heart failure (8) Hyperlipidemia Current visit: No Status: Chronic Monitor Qualifiers: Hyperlipidemia type: unspecified Qualified Code(s): E78.5 - Hyperlipidemia, unspecified (9) Paroxysmal atrial fibrillation Current visit: No Status: Chronic Rate controlled she seems and in rhythm today (10) Type II diabetes mellitus Current visit: No Status: Chronic Hyperglycemia probably from the steroids and fighting infection use sliding scale Qualifiers: Diabetes mellitus detention insulin use: with photo printer use Diabetes mellitus complication status: without complication Qualified Code(s): E11.9 - Type 2 diabetes mellitus without complications; Z79.4 - jail (current) use of insulin (11) GERD (gastroesophageal reflux disease) Current visit: No Status: Chronic Stable Qualifiers: Esophagitis presence: esophagitis presence not specified Qualified Code(s): K21.9 - Gastro-esophageal reflux disease without esophagitis (12) Hypothyroidism Current visit: No Status: Chronic Asymptomatic Qualifiers: Hypothyroidism type: unspecified Qualified Code(s): E03.9 - Hypothyroidism, unspecified Internal Medicine - H&P: HPI Chief complaint: Shortness of breath Admitted From: Home Plans for Post Hospital Care: Home History of present illness: Ms. Kline is a 73 year old female presented to the emergency room with shortness of breath. She is diagnosis acute exacerbation of COPD and hypoxia is given Solu-Medrol 2 doses started on azithromycin and Rocephin. Started on neb treatments and home inhalers. She initially felt better with Solu-Medrol but now she is little more short of breath when she exerts herself. Even though prednisone will increase blood sugars she wants prednisone to help her wheezing. She has been coughing up some blood-tinged sputum. She reported having fevers and chills before she went to ER since antibiotic she has not had those symptoms she reports some diarrhea and coughing to the point of vomiting she is coughing every time she tried heat hard foods or changing her diet to pureed intelligent diet speech therapist continue multiple. She did not cough with with liquids. She reports having troubles swallowing since she had surgery for his tracheal cancer. Whenever she is weeks she has more challenge. Discussed varying her meal based on her energy level. She lives alone at home she has home health. Her [id number] sets up her medicines. She does have a follow-up system in place. Questions answered concerns addressed Past Med Surg Social Fam HX - Past Medical History Medical history: arthritis, asthma, atrial fibrillation, cancer (Tracheal), CHF, COPD, coronary artery disease, CVA, diabetes, GERD, hyperlipidemia, hypert ension, renal disease (Chronic kidney disease), thyroid disease (Hypothyroidism), other (Dysphagia, raspy voice) Additional medical history: hiatial hernia,memory loss, Psychiatric history: anxiety, depression - Past Surgical History Surgical History: cancer surgery (Tracheal), cataract, colectomy (PEG tube and removal), hip replacement (Right), sinus surgery, thyroidectomy, other (Bronchoscopy and biopsy, PEG tube and removal) Additional surgical history: peg tube insertion,tubal,nasal,bowl resection - Social History Smoking Status: Former smoker Smokeless Tobacco Status: No Alcohol use: none Drug use: none Current living situation: Home - Independent Activity Level: Independent ambulation - Family History Mother History Unknown: Yes Adopted: [place]: [place] Family Member Ethnicity: Non- Living Status: Cause of : unknown Hx Family Cardiac Disorders: Yes (HTN) Hx Family Respiratory Disorders: No Hx Family Cancer: No Hx Family GI Disorders: No Hx Family Genitourinary Disorders: No Hx Family Endocrine Disorder: Yes (DM) Hx Family Musculoskeletal Disorders: No Hx Family Neuromuscular Disorders: No Hx Family Neurologic Disorders: No Hx Family HEENT Disorders: No Hx Family Autoimmune Disorders: No Hx Family Reproductive Disorders: No Hx Family Psychosocial Disorders: No Hx Family Medical Disorders: No Father History Unknown: Yes Adopted: No Family Member Ethnicity: Non- Living Status: Hx Family Cardiac Disorders: Yes Internal Medicine - H&P: Meds Insulin NPH Hum/Reg Insulin Hm [Novolin 70-30 100 Unit/ml Vial] 20 unit SQ BID PRN 10/12/14 [History] Montelukast Sodium 10 mg PO HS 10/12/14 [History] Potassium Chloride 10 meq PO BID 10/12/14 [History] Tiotropium [place] [Spiriva Respimat] 2.5 mg IH DAILY 04/29/15 [History] Fluticasone Propionate Nasal [Flonase] 1 spray NS BID 03/11/16 [History] Gabapentin [Neurontin] 800 mg PO BID 03/11/16 [History] Levothyroxine [Synthroid] 88 mcg PO DAILY 03/11/16 [History] Cholecalciferol (Vitamin D3) [Vitamin D3] 50,000 unit PO QWEEK 07/08/16 [History] Clopidogrel [Plavix] 75 mg PO DAILY 07/08/16 [History] Docusate [Colace] 100 mg PO BID capsule 07/12/16 [Rx] Ferrous Sulfate 325 mg PO BIDWM tablet 07/12/16 [Rx] Albuterol Neb [Proventil Neb] 2.5 mg IH Q4HR PRN 08/30/18 [History] Albuterol Sulfate [Proventil Inhaler] 1 puff IH Q6HR PRN 08/30/18 [History] Aspirin [Lo-Dose Aspirin EC] 81 mg PO DAILY 08/30/18 [History] Atorvastatin [Lipitor] 40 mg PO HS 08/30/18 [History] Bisacodyl [Women's Laxative] 5 mg PO DAILY 08/30/18 [History] Budesonide/Formoterol 160/4.5 [Symbicort 160/4.5] 1 puff IH BIDR 08/30/18 [His tory] FLUoxetine HCl [Prozac] 10 mg PO DAILY 08/30/18 [History] Meloxicam [Mobic] 15 mg PO DAILY 08/30/18 [History] Omeprazole [PriLOSEC] 40 mg PO DAILY 08/30/18 [History] Ranitidine HCl [Acid Center Line Cutter Operator] 150 mg PO BID 08/30/18 [History] Atenolol [Tenormin] 50 mg PO BID #60 tablet 09/01/18 [Rx] Diltiazem CD (24hr) [Cardizem CD] 180 mg PO DAILY cap.er.24h 09/01/18 [Rx] Allergy/AdvReac Type Severity Reaction Status Date / Time No Known Allergies Allergy Verified 08/30/18 07:40 All Systems PM: A 10-system review of systems was performed and is negative for pertinent findings except as documented above in the HPI. - Constitutional Vitals: Temp Pulse Resp BP Pulse Ox 98.2 F 72 17 121/68 95 10/01/18 10:47 10/01/18 10:47 10/01/18 10:47 10/01/18 10:47 10/01/18 10:47 - Head Head exam: Present: atraumatic, normocephalic - Eye Eye exam: Present: PERRL, conjuntiva pink, sclera anicteric Pupils: Present: PERRL - Neck Neck exam general surgery: Present: supple, trachea midline. Absent: lymphadenopathy - Respiratory Respiratory exam: Present: wheezes (Expiratory). Absent: accessory muscle use, rales, rhonchi - Cardiovascular Cardiovascular exam: Present: RRR, +S1, +S2. Absent: diastolic murmur, gallop, rubs, systolic murmur - GI/Abdominal GI/Abdominal exam: Present: normal bowel sounds, soft, no peritoneal signs. Absent: distended, tenderness - Extremities Exam Extremities exam: Present: warm. Absent: calf tenderness, cyanotic, pedal edema - Neurological Exam Neurological exam: Present: CN II-XII intact, oriented X3, no focal deficits. Absent: pronater drift, facial droop, speech deficit - Skin Skin exam: Present: dry, intact Internal Med - H&P Results - Labs CBC & Chem 7: 10/01/18 06:35 10/01/18 06:35 Labs: Short CBC 10/01/18 Range/Units 06:35 WBC 8.1 (4.3-11.1) K/mcL Hgb 12.8 (11.5-15.4) g/dL Hct 39.4 (35.3-44.9) % Plt Count 287 (140-400) K/mcL BMP 10/01/18 06:35 Sodium 134 L Potassium 3.7 Chloride 101 Carbon Dioxide 23 BUN 12 Creatinine 0.93 Glucose 223 H Calcium 9.2 Cardiac Enzymes 10/01/18 Range/Units 06:35 Troponin I < 0.03 (< 0.04) ng/mL - Impressions ITS Impressions Chest X-Ray 09/30/18 12:40 IMPRESSION: No active cardiopulmonary disease D/ / Jairo Tucker MD / Jairo Tucker MD Interpreting Provider: Jairo Tucker MD
[2018-10-01] MEDS: predniSONE 20 MG TABLET PO SCH (16:55)
[2018-10-01] MEDS: Azithromycin 500 MG in D5% in Water 250 ML IVPB SCH (16:55)
[2018-10-01] MEDS: cefTRIAXone 1,000 MG in Water for inj. (sterile) 10 ML IVPB SCH (16:55)
[2018-10-01] MEDS: Insulin DETEMIR 100 UNIT/ML X5UNITS SQ SCH (20:41)
[2018-10-02 05:13] LABS: Basophils % 0.1 %; Hematocrit 37.2 % (35.3-44.9); Hemoglobin 12.1 g/dL (11.5-15.4); Immature Granulocytes % 0.6 % (0-4); Lymphocytes # 1.2 K/mcL (0.6-4.6); Lymphocytes % 7.9 %; Mean Corpuscular HGB Conc 32.5 g/dL (31.6-35.5); Mean Corpuscular Hemoglobin 26.9 pg (28.0-33.3); Mean Corpuscular Volume 82.9 fL (83.0-100.0); Monocytes % 6.8 %; Neutrophils # 12.7 K/mcL (1.6-8.9); Platelet Count 285 K/mcL (140-400); Red Blood Count 4.49 M/mcL (3.82-4.97); Red Cell Distribution Width 15.1 % (11.5-14.5); Segmented Neutrophils % 84.6 %
[2018-10-02 05:35] LABS: BUN/Creatinine Ratio 15 (6-26); Blood Urea Nitrogen 14 mg/dL (8-23); Calcium 9.3 mg/dL (8.6-10.3); Carbon Dioxide 24 mEq/L (23-29); Chloride 107 mEq/L (98-107); Glucose 157 mg/dL (70-105); Osmolality,Calculated 292 (280-300); Potassium 3.9 mEq/L (3.5-5.1); Sodium 139 mEq/L (136-145); eGFR For African Americans > 60 (> 60); eGFR For Non-African Americans 57 (> 60)
[2018-10-02] MEDS: Insulin LISPRO 300 UNITS/3 ML VIAL SQ SCH ×4 (07:48→20:14)
[2018-10-02] MEDS: Fluticasone Propionate Nasal 50 MCG/SPRAY BOTTLE NS SCH ×2 (08:05→20:15)
[2018-10-02] MEDS: Diltiazem CD (24hr) 180 MG CAPSULE PO SCH (08:06)
[2018-10-02] MEDS: predniSONE 20 MG TABLET PO SCH (08:06)
[2018-10-02] MEDS: Famotidine 20 MG TABLET PO SCH ×2 (08:06→20:03)
[2018-10-02] MEDS: Gabapentin 400 MG CAPSULE PO SCH ×2 (08:06→20:03)
[2018-10-02] MEDS: Aspirin Enteric Coated 81 MG Tablet PO SCH (08:06)
[2018-10-02] MEDS: FLUoxetine HCl 10 MG CAPSULE PO SCH (08:07)
[2018-10-02] MEDS: Tiotropium 18 MCG inhalation IH SCH (09:00)
[2018-10-02] MEDS: Budesonide/Formoterol 160/4.5 1 PUFF INH IH SCH ×2 (09:00→20:39)
--- NOTE | 2018-10-02 12:40 | Electrocardiograph Report ---
[place] [id number] Test Date: 2018-09-30 Pat Name: Palak Kline Department: EDP-12 Room: [facility] Gender: F Tour Director: : 1945 Requested By: Jay Webb Order Number: [id number] Reading MD: Demetrius Willis Measurements Intervals [place] Rate: 102 P: [place]: QRS: -46 QRSD: 99 T: 6 QT: 391 QTc: 471 Interpretive Statements Atrial fibrillation/flutter Nonspecific ST-T changes Electronically Signed On 10-02-2018 12:39:29 EDT by Demetrius Willis
--- NOTE | 2018-10-02 12:46 | Electrocardiograph Report ---
[place] [id number] Test Date: 2018-09-30 Pat Name: Palak Kline Department: EDP-12 Room: [facility] Gender: F Community Aide: : 1945 Requested By: Jay Webb Order Number: [id number] Reading MD: Demetrius Willis Measurements Intervals [place] Rate: 95 P: [place]: QRS: -37 QRSD: 143 T: 12 QT: 372 QTc: 480 Interpretive Statements Atrial fibrillation Nonspecific IVCD Nonspecific ST-T changes Electronically Signed On 10-02-2018 12:45:27 EDT by Demetrius Willis
[2018-10-02] MEDS ORDERED: *HR* Digoxin 0.25 MG TABLET PO ONE (13:15)
--- NOTE | 2018-10-02 13:17 | Internal Med Progress Note ---
Date of Encounter: 10/02/18 Time of Encounter: 12:45 - Assessment and plan (1) Bronchitis Current Visit: Yes Status: Acute Assessment and plan: October 02. Rocephin and Zithromax have been ordered. Lactobacillus will be added. Pro-calcitonin level and chest CT will be done to further evaluate. Previous CT showed mild lymphadenopathy. (2) Diabetes Current Visit: No Status: Chronic Assessment and plan: October 02. Hemoglobin A1c was 5.9% on 01/27/2015. Recheck in a.m. Qualifiers: Diabetes mellitus type: type 2 Diabetes mellitus usp insulin use: with usp use Diabetes mellitus complication status: with hyperglycemia Qualified Code(s): E11.65 - Type 2 diabetes mellitus with hyperglycemia; Z79.4 - assisted (current) use of insulin (3) Hypertension Current Visit: No Status: Chronic Assessment and plan: October 02. Continue atenolol and diltiazem. Qualifiers: Hypertension type: essential hypertension Qualified Code(s): I10 - Essential (primary) hypertension (4) Anemia Current Visit: No Status: Acute Assessment and plan: October 02. Hemoglobin normal at 12.1. Microcytosis present with MCV 82.9. Check iron profile and ferritin in a.m. Qualifiers: Anemia type: iron deficiency Iron deficiency anemia type: unspecified iron deficiency Qualified Code(s): D50.9 - Iron deficiency anemia, unspecified (5) Diastolic CHF Current Visit: No Status: Chronic Assessment and plan: October 02. BN peptide elevated at 588. Continue Lasix and Tenormin. Add Lanoxin to assist in rate control and heart failure. Qualifiers: Qualified Code(s): I50.32 - Chronic diastolic (congestive) heart failure (6) Hypothyroidism Current Visit: No Status: Chronic Assessment and plan: October 02. Check TSH in a.m. Qualifiers: Hypothyroidism type: unspecified Qualified Code(s): E03.9 - Hypothyroidism, unspecified (7) Atrial fibrillation with rapid ventricular response Current Visit: No Status: Acute Assessment and plan: October 02. Continue Tenormin. Add Lanoxin. It is unknown why she is not taking OAC. (8) Acute on chronic congestive heart failure with left ventricular diastolic dysfunction Current Visit: No Status: Acute Assessment and plan: October 02. Add low-dose Bumex and Lanoxin. Continue atenolol. (9) Dysphagia Current Visit: Yes Status: Acute Assessment and plan: October 02. Speech/swallowing evaluation has been ordered. Qualifiers: Dysphagia type: unspecified Qualified Code(s): R13.10 - Dysphagia, unspecified - Subjective Interval history: October 02. She has no new complaints and feels better. She reports her dyspnea has lessened. - Constitutional Vitals: Temp Pulse Resp BP Pulse Ox 98.2 F 113 20 129/84 94 10/02/18 10:00 10/02/18 10:00 10/02/18 10:10/02/18 10:10/02/18 11:49 Exam: Heart is irregularly irregular with rate approximately her per minute. Lungs show prolonged expiratory phase with mild diffuse wheezing. Extremities show no edema. I reviewed her medications and lab results. Internal Medicine: Result - Labs CBC & Chem 7: 10/02/18 05:01 10/02/18 05:01 Labs: Short CBC 10/02/18 Range/Units 05:01 WBC 15.0 H D (4.3-11.1) K/mcL Hgb 12.1 (11.5-15.4) g/dL Hct 37.2 (35.3-44.9) % Plt Count 285 (140-400) K/mcL Neutrophils # 12.7 H (1.6-8.9) K/mcL BMP 10/02/18 05:01 Sodium 139 Potassium 3.9 Chloride 107 Carbon Dioxide 24 BUN 14 Creatinine 0.96 Glucose 157 H Calcium 9.3 - ABG Interpretation ABG results: PT/INR, D-dimer PT 14.3 Seconds (9.4-12.1) H 09/30/18 13:20 D-Dimer 385 ng/mLFEU (0-500) 09/30/18 13:20 Consult Discharge Plan - Plan Referrals: Garth Lee, CLINICAL RESOURCE COORDINATOR [Primary Care Provider] - 1 week
[2018-10-02] MEDS: Bumetanide 1 MG TABLET PO SCH (14:09)
[2018-10-02] MEDS: cefTRIAXone 1,000 MG in Water for inj. (sterile) 10 ML IVPB SCH (16:28)
[2018-10-02] MEDS: Azithromycin 500 MG in D5% in Water 250 ML IVPB SCH (16:28)
[2018-10-02] MEDS: Insulin DETEMIR 100 UNIT/ML X5UNITS SQ SCH (20:14)
[2018-10-02] MEDS: Albuterol 2.5 MG/3 ML NEBULIZER AER PRN (20:39)
[2018-10-03] MEDS: Albuterol 2.5 MG/3 ML NEBULIZER AER PRN ×2 (04:52→10:08)
[2018-10-03 07:58] LABS: Basophils % 0.1 %; Eosinophils % 0.1 %; Hematocrit 39.5 % (35.3-44.9); Hemoglobin 12.5 g/dL (11.5-15.4); Immature Granulocytes % 0.5 % (0-4); Lymphocytes # 1.8 K/mcL (0.6-4.6); Lymphocytes % 11.7 %; Mean Corpuscular HGB Conc 31.6 g/dL (31.6-35.5); Mean Corpuscular Hemoglobin 26.6 pg (28.0-33.3); Mean Platelet Volume 9.8 fL (9.4-12.4); Monocytes # 1.4 K/mcL (0.0-1.3); Monocytes % 9.4 %; Neutrophils # 11.7 K/mcL (1.6-8.9); Platelet Count 248 K/mcL (140-400); Red Cell Distribution Width 15.1 % (11.5-14.5); Segmented Neutrophils % 78.2 %
[2018-10-03] MEDS: Insulin LISPRO 300 UNITS/3 ML VIAL SQ SCH ×4 (08:08→19:55)
[2018-10-03] MEDS: predniSONE 20 MG TABLET PO SCH (08:11)
[2018-10-03] MEDS: Bumetanide 1 MG TABLET PO SCH (08:12)
[2018-10-03] MEDS: Aspirin Enteric Coated 81 MG Tablet PO SCH (08:12)
[2018-10-03] MEDS: Gabapentin 400 MG CAPSULE PO SCH ×2 (08:12→19:52)
[2018-10-03] MEDS: FLUoxetine HCl 10 MG CAPSULE PO SCH (08:12)
[2018-10-03] MEDS: Diltiazem CD (24hr) 180 MG CAPSULE PO SCH (08:13)
[2018-10-03] MEDS: Famotidine 20 MG TABLET PO SCH (08:13)
[2018-10-03] MEDS: Fluticasone Propionate Nasal 50 MCG/SPRAY BOTTLE NS SCH ×2 (08:16→19:51)
[2018-10-03 08:25] LABS: BUN/Creatinine Ratio 14 (6-26); Blood Urea Nitrogen 14 mg/dL (8-23); Calcium 9.1 mg/dL (8.6-10.3); Carbon Dioxide 27 mEq/L (23-29); Chloride 104 mEq/L (98-107); Glucose 99 mg/dL (70-105); Osmolality,Calculated 291 (280-300); Potassium 3.5 mEq/L (3.5-5.1); Sodium 140 mEq/L (136-145); eGFR For African Americans > 60 (> 60); eGFR For Non-African Americans 55 (> 60)
[2018-10-03 09:00] LABS: Thyroid Stimulating Hormone 1.437 mcIU/mL (0.340-5.600)
--- NOTE | 2018-10-03 09:45 | Internal Med Progress Note ---
Date of Encounter: 10/03/18 Time of Encounter: 09:37 - Assessment and plan (1) Bronchitis Current Visit: Yes Status: Acute Assessment and plan: October 02. Rocephin and Zithromax have been ordered. Lactobacillus will be added. Pro-calcitonin level and chest CT will be done to further evaluate. Previous CT showed mild lymphadenopathy. October 03. Pro-calcitonin level returned < 0.02. Discontinue Rocephin and Zithromax. Chest CT showed no worrisome pathology. (2) Diabetes Current Visit: No Status: Chronic Assessment and plan: October 02. Hemoglobin A1c was 5.9% on 01/27/2015. Recheck in a.m. October 03. Hemoglobin A1c pending. Accu-Cheks acceptable. Qualifiers: Diabetes mellitus type: type 2 Diabetes mellitus superintendent terminal insulin use: with superintendent terminal use Diabetes mellitus complication status: with hyperglycemia Qualified Code(s): E11.65 - Type 2 diabetes mellitus with hyperglycemia; Z79.4 - intermodal owner operator truck driver (current) use of insulin (3) Hypertension Current Visit: No Status: Chronic Assessment and plan: October 02. Continue atenolol and diltiazem. Qualifiers: Hypertension type: essential hypertension Qualified Code(s): I10 - Essential (primary) hypertension (4) Anemia Current Visit: No Status: Acute Assessment and plan: October 02. Hemoglobin normal at 12.1. Microcytosis present with MCV 82.9. Check iron profile and ferritin in a.m. October 03. Hemoglobin stable at 12.5. Iron studies pending. Qualifiers: Anemia type: iron deficiency Iron deficiency anemia type: unspecified iron deficiency Qualified Code(s): D50.9 - Iron deficiency anemia, unspecified (5) Diastolic CHF Current Visit: No Status: Chronic Assessment and plan: October 02. BN peptide elevated at 588. Continue Lasix and Tenormin. Add Lanoxin to assist in rate control and heart failure. October 03. BN peptide slightly higher at 629. Continue Bumex, Tenormin, and Lanoxin. Qualifiers: Qualified Code(s): I50.32 - Chronic diastolic (congestive) heart failure (6) Hypothyroidism Current Visit: No Status: Chronic Assessment and plan: October 02. Check TSH in a.m. October 03. TSH normal at 1.437. Continue present dose Synthroid. Qualifiers: Hypothyroidism type: unspecified Qualified Code(s): E03.9 - Hypothyroidism, unspecified (7) Atrial fibrillation with rapid ventricular response Current Visit: No Status: Acute Assessment and plan: October 02. Continue Tenormin. Add Lanoxin. It is unknown why she is not taking OAC. October 03. Continue Tenormin, diltiazem, and Lanoxin. (8) Dysphagia Current Visit: Yes Status: Acute Assessment and plan: October 02. Speech/swallowing evaluation has been ordered. Qualifiers: Dysphagia type: unspecified Qualified Code(s): R13.10 - Dysphagia, unsp ecified - Subjective Interval history: October 02. She has no new complaints and feels better. She reports her dyspnea has lessened. October 03. She has no new complaints and feels further improved. She wishes to be discharged home. - Constitutional Vitals: Temp Pulse Resp BP Pulse Ox 98.4 F 72 16 133/83 96 10/03/18 06:46 10/03/18 06:46 10/03/18 06:46 10/03/18 06:46 10/03/18 06:46 Exam: She is lying in bed and appears slightly dyspneic. Lungs show mild expiratory wheezing. I reviewed her medications, CT report, and lab results. Internal Medicine: Result - Labs CBC & Chem 7: 10/03/18 07:42 10/03/18 07:42 Labs: Short CBC 10/03/18 Range/Units 07:42 WBC 15.0 H (4.3-11.1) K/mcL Hgb 12.5 (11.5-15.4) g/dL Hct 39.5 (35.3-44.9) % Plt Count 248 (140-400) K/mcL Neutrophils # 11.7 H (1.6-8.9) K/mcL BMP 10/03/18 07:42 Sodium 140 Potassium 3.5 Chloride 104 Carbon Dioxide 27 BUN 14 Creatinine 0.98 Glucose 99 Calcium 9.1 - ABG Interpretation ABG results: PT/INR, D-dimer PT 14.3 Seconds (9.4-12.1) H 09/30/18 13:20 D-Dimer 385 ng/mLFEU (0-500) 09/30/18 13:20 - Impressions Impressions Chest CT 10/02/18 13:06 IMPRESSION: 1. No convincing evidence of intrathoracic lymphadenopathy. Please note evaluation of the small hilar lymph nodes seen on the previous exam is severely limited by the lack of IV contrast. In addition, a prominent subcarinal lymph node cannot be out from the esophagus and the esophagus may be fluid filled. Repeat chest CT with contrast should be considered for definitive evaluation. If the patient has dysphagia, EGD or esophagram could be considered for further evaluation. 2. No convincing evidence of an acute cardiopulmonary process. 3. Limited evaluation of the lungs due to respiratory motion artifact. Atelectatic changes are present as described above. 4. Incidental findings include atherosclerotic vascular calcifications and a moderate-sized hiatal hernia. D/ / Garrett Randle MD / Garrett Randle MD Interpreting Provider: Garrett Randle MD Consult Discharge Plan - Plan Referrals: Garth Lee, EXTENSION SERVICE SPECIALIST [Primary Care Provider] - 1 week
[2018-10-03] MEDS ORDERED: Famotidine 20 MG TABLET PO PRN (09:53)
[2018-10-03] MEDS: Budesonide/Formoterol 160/4.5 1 PUFF INH IH SCH ×2 (10:08→22:09)
[2018-10-03] MEDS: Tiotropium 18 MCG inhalation IH SCH (10:08)
[2018-10-03] MEDS: *HR* Digoxin 0.25 MG TABLET PO SCH (11:48)
[2018-10-03 13:17] LABS: Estimated Average Glucose 174 mg/dl
[2018-10-03 13:28] LABS: % Iron Saturation 10 % (15-50); Iron 29 mcg/dL (50-170); Transferrin 214 mg/dL (203-362)
[2018-10-03 13:42] LABS: Ferritin 101 ng/mL (10-120)
[2018-10-03] MEDS: Insulin DETEMIR 100 UNIT/ML X5UNITS SQ SCH (19:54)
[2018-10-04 05:42] LABS: Basophils % 0.2 %; Eosinophils % 0.3 %; Hematocrit 40.7 % (35.3-44.9); Immature Granulocytes % 0.4 % (0-4); Lymphocytes # 1.7 K/mcL (0.6-4.6); Lymphocytes % 15.4 %; Mean Corpuscular HGB Conc 31.9 g/dL (31.6-35.5); Mean Corpuscular Hemoglobin 26.6 pg (28.0-33.3); Mean Corpuscular Volume 83.2 fL (83.0-100.0); Mean Platelet Volume 10.2 fL (9.4-12.4); Monocytes # 1.3 K/mcL (0.0-1.3); Monocytes % 11.6 %; Neutrophils # 8.2 K/mcL (1.6-8.9); Platelet Count 261 K/mcL (140-400); Red Blood Count 4.89 M/mcL (3.82-4.97); Red Cell Distribution Width 14.9 % (11.5-14.5); Segmented Neutrophils % 72.1 %; White Blood Count 11.3 K/mcL (4.3-11.1)
[2018-10-04 05:59] LABS: BUN/Creatinine Ratio 18 (6-26); Blood Urea Nitrogen 16 mg/dL (8-23); Calcium 9.1 mg/dL (8.6-10.3); Carbon Dioxide 31 mEq/L (23-29); Chloride 102 mEq/L (98-107); Glucose 112 mg/dL (70-105); Osmolality,Calculated 290 (280-300); Potassium 3.8 mEq/L (3.5-5.1); Sodium 139 mEq/L (136-145); eGFR For African Americans > 60 (> 60); eGFR For Non-African Americans > 60 (> 60)
[2018-10-04] MEDS: Insulin LISPRO 300 UNITS/3 ML VIAL SQ SCH (08:12)
[2018-10-04 08:25] VITALS: BP 139/92
[2018-10-04] MEDS: Bumetanide 1 MG TABLET PO SCH (09:17)
[2018-10-04] MEDS: FLUoxetine HCl 10 MG CAPSULE PO SCH (09:18)
[2018-10-04] MEDS: *HR* Digoxin 0.25 MG TABLET PO SCH (09:19)
[2018-10-04] MEDS: Gabapentin 400 MG CAPSULE PO SCH (09:19)
[2018-10-04] MEDS: predniSONE 20 MG TABLET PO SCH (09:19)
[2018-10-04] MEDS: Aspirin Enteric Coated 81 MG Tablet PO SCH (09:19)
[2018-10-04] MEDS: Diltiazem CD (24hr) 180 MG CAPSULE PO SCH (09:19)
[2018-10-04] MEDS: Fluticasone Propionate Nasal 50 MCG/SPRAY BOTTLE NS SCH (10:16)
--- NOTE | 2018-10-04 10:19 | Discharge Summary ---
Orders not resulted at time of discharge: Pending orders 09/30/18 13:29 Culture,Blood [] Stat Date of Encounter: 10/04/18 Time of Encounter: 10:08 - Discharge Diagnosis (1) Bronchitis Priority: Primary Status: Acute (2) Diabetes Priority: Secondary Status: Chronic Qualifiers: Diabetes mellitus type: type 2 Diabetes mellitus mcc insulin use: with terminal press operator use Diabetes mellitus complication status: with hyperglycemia Qualified Code(s): E11.65 - Type 2 diabetes mellitus with hyperglycemia; Z79.4 - terminal make up operator (current) use of insulin (3) Hypertension Priority: Secondary Status: Chronic Qualifiers: Hypertension type: essential hypertension Qualified Code(s): I10 - Essential (primary) hypertension (4) Anemia Priority: Secondary Status: Resolved Qualifiers: Anemia type: iron deficiency Iron deficiency anemia type: unspecified iron deficiency Qualified Code(s): D50.9 - Iron deficiency anemia, unspecified (5) Diastolic CHF Priority: Secondary Status: Chronic Qualifiers: Qualified Code(s): I50.32 - Chronic diastolic (congestive) heart failure (6) Hypothyroidism Priority: Secondary Status: Chronic Qualifiers: Hypothyroidism type: unspecified Qualified Code(s): E03.9 - Hypothyroidism, unspecified (7) Atrial fibrillation with rapid ventricular response Priority: Secondary Status: Acute (8) Dysphagia Priority: Secondary Status: Acute Qualifiers: Dysphagia type: unspecified Qualified Code(s): R13.10 - Dysphagia, unspecified Hospital course: Ms. Kline is a 73 year old female who came to emergency room complaining of increased dyspnea. She was felt to have exacerbation of COPD. She was started empirically on Rocephin and Zithromax with steroids. Pro-calcitonin level returned < 0.02. Antibiotics were discontinued. WBC initially catrachita to 15.0 on October 02 but had decreased to 11.3 with no left shift on differential by day of discharge. She was started on Lanoxin in addition to atenolol for control of ventricular response from atrial fibrillation. Lanoxin will be continued at discharge. BN peptide catrachita to 1353 by day of discharge. She denied dyspnea. She was started on Bumex during hospitalization and this will be continued at discharge. Tenormin and Lanoxin will be continued also. On October 04 she felt back to her baseline wished to be discharged home. She will follow with her PCP within 1 week. Room air oximetry on 6 minute walk will be done prior to discharge. - Time Spent with Patient Total time spent providing and/or coordinating discharge services: - Discharge Medications Prescriptions: New Bumetanide 0.5 mg PO DAILY #30 tablet Digoxin [Lanoxin] 0.25 mg PO DAILY #30 tablet Potassium Chloride 20 meq PO BID #120 tab.er.prt Continued Tiotropium [place] [Spiriva Respimat] 2.5 mg IH DAILY Clopidogrel [Plavix] 75 mg PO DAILY Cholecalciferol (Vitamin D3) [Vitamin D3] 50,000 unit PO QWEEK Ferrous Sulfate 325 mg PO BIDWM tablet Docusate [Colace] 100 mg PO BID capsule Insulin NPH Hum/Reg Insulin Hm [Novolin 70-30 100 Unit/ml Vial] 20 unit SQ BID PRN PRN Reason: BG >150 Montelukast Sodium 10 mg PO HS Fluticasone Propionate Nasal [Flonase] 1 spray NS BID Levothyroxine [Synthroid] 88 mcg PO DAILY Gabapentin [Neurontin] 800 mg PO BID Omeprazole [PriLOSEC] 40 mg PO DAILY Budesonide/Formoterol 160/4.5 [Symbicort 160/4.5] 1 puff IH BIDR Meloxicam [Mobic] 15 mg PO DAILY Albuterol Neb [Proventil Neb] 2.5 mg IH Q4HR PRN PRN Reason: Shortness Of Breath Ranitidine HCl [Acid Director Of Infection Prevention] 150 mg PO BID Albuterol Sulfate [Proventil Inhaler] 1 puff IH Q6HR PRN PRN Reason: Shortness Of Breath Aspirin [Lo-Dose Aspirin EC] 81 mg PO DAILY FLUoxetine HCl [Prozac] 10 mg PO DAILY Bisacodyl [Women's Laxative] 5 mg PO DAILY Atorvastatin [Lipitor] 40 mg PO HS Diltiazem CD (24hr) [Cardizem CD] 180 mg PO DAILY cap.er.24h Atenolol [Tenormin] 50 mg PO BID #60 tablet Discontinued Potassium Chloride 10 meq PO BID Home Medications: Insulin NPH Hum/Reg Insulin Hm [Novolin 70-30 100 Unit/ml Vial] 20 unit SQ BID PRN 10/12/14 [History] Montelukast Sodium 10 mg PO HS 10/12/14 [History] Tiotropium [place] [Spiriva Respimat] 2.5 mg IH DAILY 04/29/15 [History] Fluticasone Propionate Nasal [Flonase] 1 spray NS BID 03/11/16 [History] Gabapentin [Neurontin] 800 mg PO BID 03/11/16 [History] Levothyroxine [Synthroid] 88 mcg PO DAILY 03/11/16 [History] Cholecalciferol (Vitamin D3) [Vitamin D3] 50,000 unit PO QWEEK 07/08/16 [History] Clopidogrel [Plavix] 75 mg PO DAILY 07/08/16 [History] Docusate [Colace] 100 mg PO BID capsule 07/12/16 [Rx] Ferrous Sulfate 325 mg PO BIDWM tablet 07/12/16 [Rx] Albuterol Neb [Proventil Neb] 2.5 mg IH Q4HR PRN 08/30/18 [History] Albuterol Sulfate [Proventil Inhaler] 1 puff IH Q6HR PRN 08/30/18 [History] Aspirin [Lo-Dose Aspirin EC] 81 mg PO DAILY 08/30/18 [History] Atorvastatin [Lipitor] 40 mg PO HS 08/30/18 [History] Bisacodyl [Women's Laxative] 5 mg PO DAILY 08/30/18 [History] Budesonide/Formoterol 160/4.5 [Symbicort 160/4.5] 1 puff IH BIDR 08/30/18 [History] FLUoxetine HCl [Prozac] 10 mg PO DAILY 08/30/18 [History] Meloxicam [Mobic] 15 mg PO DAILY 08/30/18 [History] Omeprazole [PriLOSEC] 40 mg PO DAILY 08/30/18 [History] Ranitidine HCl [Acid Director Of Infection Prevention] 150 mg PO BID 08/30/18 [History] Atenolol [Tenormin] 50 mg PO BID #60 tablet 09/01/18 [Rx] Diltiazem CD (24hr) [Cardizem CD] 180 mg PO DAILY cap.er.24h 09/01/18 [Rx] Bumetanide 0.5 mg PO DAILY #30 tablet 10/04/18 [Rx] Digoxin [Lanoxin] 0.25 mg PO DAILY #30 tablet 10/04/18 [Rx] Potassium Chloride 20 meq PO BID #120 tab.er.prt 10/04/18 [Rx] Allergies/Adverse Reactions: Allergy/AdvReac Type Severity Reaction Status Date / Time No Known Allergies Allergy Verified 08/30/18 07:40 Date of admission: 10/02/18 18:07 Primary care physician: Garth Lee CNP Consults: 09/30/18 18:24 Consult to Pastoral Services [CONS] Routine Comment: Consult to [employer] [CONS] Routine Reason for SW Consult: lives alone with medical problems 10/01/18 12:41 Consult to Speech Therapy [CONS] Routine Comment: Evaluate, develop and implement POC Reason for Consult: difficulty swallowing food items that are not soft or pureed - call to be made 10/02 Call Completed: No - Constitutional Vitals: Temp Pulse Resp BP Pulse Ox 97.6 F 104 16 139/92 98 10/04/18 08:21 10/04/18 08:21 10/04/18 08:21 10/04/18 08:21 10/04/18 09:14 - Patient Status Disposition: Home, Self-Care Condition: Fair - Discharge Instructions Follow Up With: Garth Lee CNP [Primary Care Provider] - 1 week - Diet and Activity Activity: resume usual activities as tolerated Diet: advance to your usual diet
[2018-10-04] MEDS: Budesonide/Formoterol 160/4.5 1 PUFF INH IH SCH (10:39)
[2018-10-04] MEDS: Tiotropium 18 MCG inhalation IH SCH (10:39)
== END 2018-10-04 11:30 | disposition home or self-care (01) | DRG 140 ==
LOC: EMEROOPIK 12:22 → INPPIK 12:22
PROVIDERS: ADMIT Family Medicine; ATTEND Internal Medicine